=== PATIENT | female | born 1980 | race Caucasian/White ===

== ENCOUNTER 2019-03-29 23:02 | Emergency (ER) | payer SELFPAY ==
[2019-03-29 23:18] VITALS: TEMP 98.5
--- NOTE | 2019-03-29 23:22 | ED.PDOC ---
History of Present Illness - General Chief Complaint: Allergic Reaction Stated Complaint: itching, redness/swelling to hands/feet Time Seen by Provider: 03/29/19 23:07 Source: patient Exam Limitations: no limitations - History of Present Illness Initial Comments: Troi Barth 38 y/o female stated that she had onset of itching about 45 minutes at the motel where she had been staying the last 4 days on her arms and feet then redness noted 45 minutes ago.Denies eating unusual,no new soap -bath or laundry. Stated took Bactrim today left over from previous UTI;stated had dy suria Timing/Duration: 1 hour, getting worse Severity: moderate Improving Factors: nothing Worsening Factors: nothing Associated Symptoms: other - see hpi Allergies/Adverse Reactions: Allergies NO KNOWN ALLERGY Allergy (Verified 03/29/19 23:18) Home Medications: Ambulatory Orders Ciprofloxacin [Cipro] 250 mg PO Q12H 5 Days #10 tablet 03/30/19 predniSONE 20 mg PO DAILY #5 tab 03/30/19 Review of Systems - Review of Systems Genitourinary: States: see HPI, dysuria Skin: States: see HPI, rash, other - itching All other Systems: Reviewed and Negative, No Change from Baseline Past Medical History (General) - Patient Medical History Hx Seizures: No Hx Stroke: No Hx Dementia: No Hx Asthma: No Hx of COPD: No Hx Cardiac Disorders: No Hx Congestive Heart Failure: No Hx Pacemaker: No Hx Hypertension: No Hx Thyroid Disease: No Hx Diabetes: No Hx Gastroesophageal Reflux: No Hx Renal Disease: No Hx Cancer: No Hx of HIV: No Hx Hepatitis C: No Hx MRSA: No Surgical History: no surgical history - Vaccination History Hx Tetanus, Diphtheria Vaccination: No Hx Influenza Vaccination: No Hx Pneumococcal Vaccination: No - Social History Hx Tobacco Use: Yes - Female History Patient is a Female of Child Bearing Age (10 -59 yrs old): Yes Hx Last Menstrual Period: 03/26/19 Patient : No Family Medical History - Family History Mother Family History: Unknown Physical Exam - Physical Exam General Appearance: Alert, Comfortable, No apparent distress Eye Exam: bilateral normal Ears, Nose, Throat: hearing grossly normal, normal ENT inspection, normal pharynx Neck: supple, normal inspection Respiratory: lungs clear, normal breath sounds Cardiovascular/Chest: normal peripheral pulses, regular rate, rhythm, no murmur Peripheral Pulses: radial,right: 2+, radial,left: 2+ Gastrointestinal/Abdominal: soft Back Exam: no CVA tenderness, no vertebral tenderness Extremity: no pedal edema, no calf tenderness Neurologic: alert, oriented x 3 Skin Exam: normal color, warm/dry, rash - hands feet Lymphatic: no adenopathy Progress - Progress Progress: 03/29/19 23:24 Vital Signs - 24 hr 03/29/19 23:05 Temperature 98.5 F Pulse Rate [ 112 H monitor] Respiratory 20 Rate Blood Pressure 136/108 [Left Arm] O2 Sat by Pulse 97 Oximetry 03/30/19 00:30 Feeling better less itching and redness Departure - Departure Clinical Impression: Skin rash Allergic reaction Qualifiers: Encounter type: initial encounter Qualified Code(s): T78.40XA - Allergy, unspecified, initial encounter Time of Disposition: 00:32 Disposition: Discharge to Home or Self Care Condition: Fair Departure Forms: ED Discharge - Pt. Copy, Patient Portal Self Enrollment Instructions: DI for Allergic Rhinitis Prescriptions: Ciprofloxacin [Cipro] 250 mg PO Q12H 5 Days #10 tablet predniSONE 20 mg PO DAILY #5 tab Home Medications: Ambulatory Orders Ciprofloxacin [Cipro] 250 mg PO Q12H 5 Days #10 tablet 03/30/19 predniSONE 20 mg PO DAILY #5 tab 03/30/19 Additional Instructions: Return to emergency room as needed;discontinue Bactrim
[2019-03-29] MEDS ORDERED: methylPREDNISolone SODIUM SUC 125 MG/2 ML VIAL IM ONE (23:25)
[2019-03-29] MEDS ORDERED: EPINEPHrine HCL AMP 1 MG/ML AMP SUBCU ONE (23:25)
[2019-03-29] MEDS ORDERED: diphenhydrAMINE HCL 50 MG/ML VIAL IM ONE (23:25)
[2019-03-29] MEDS ORDERED: diphenhydrAMINE HCL 25 MG CAP PO ONE (23:28)
[2019-03-30 00:39] VITALS: BP 128/87; O2SAT 99
== END 2019-03-30 00:40 | disposition home or self-care (01) ==
LOC: ER 23:02
DX: L27.0 Generalized skin eruption due to drugs and medicaments taken internally (principal); T36.8X5A Adverse effect of other systemic antibiotics, initial encounter; R30.0 Dysuria; Z87.891 Personal history of nicotine dependence
CPT/HCPCS: J1200; J2930; Q0163